=== PATIENT | male | born 1940 | race Caucasian/White ===

== ENCOUNTER 2017-08-26 06:38 | Day surgery (SDC) | payer MEDICARE ==
[2017-08-24 10:42] VITALS: BP 172/70
[2017-08-24 10:45] LABS: BASOPHILS % (AUTO) 0.4 % (0.0-5.0); EOSINOPHILS % (AUTO) 4.7 % (0.0-8.0); HEMATOCRIT 35.9 % (42-54); LYMPHOCYTES % (AUTO) 13.4 % (21.0-51.0); MEAN CORPUSCULAR HEMOGLOBIN 31.4 pg (27.0-33.0); MEAN CORPUSCULAR HGB CONC 33.7 g/dL (32.0-36.0); MEAN CORPUSCULAR VOLUME 93.2 fL (79-99); MONOCYTES % (AUTO) 6.4 % (3.0-13.0); NEUTROPHILS % (AUTO) 75.1 % (40.0-77.0); NUCLEATED RED BLOOD CELLS 0.1 % (0.0-0.19); PLATELET COUNT (AUTO) 92 K/uL (130-400); RED BLOOD CELL COUNT(AUTO) 3.85 MIL/uL (4.50-6.20); RED CELL DISTRIBUTION WIDTH 14.9 % (11.0-15.5); WHITE BLOOD COUNT (AUTO) 5.1 K/uL (4.8-10.8)
[2017-08-24 11:00] LABS: CREATININE 4.4 mg/dL (0.5-1.5); POTASSIUM 5.3 mmol/L (3.5-5.1)
[2017-08-24 11:06] LABS: INR 1.02 (0.85-1.15); PARTIAL THROMBOPLASTIN TIME 31.6 SEC (26.3-35.5); PROTHROMBIN TIME 10.7 SEC (9.6-11.6)
[2017-08-26] VITALS (8 sets, daily range): BP systolic 144–207; BP diastolic 67–114
[~2017-08-26] VITALS: Ht 174 cm; Wt 82.1 kg
[~2017-08-26 06:38] MED LIST: APIX2.5T PO; CARV3.1262 PO; LOSA100T29 PO; NPH,100V SQ; PRAV40TA PO; TAMS0.4C32 PO
[2017-08-26] MEDS ORDERED: LIDOCAINE HCL 1% MDV 50ML VIAL ONE (09:51)
[2017-08-26] MEDS ORDERED: ISOVUE-300 100 ML VIAL IV ONE (09:52)
== END 2017-08-26 11:50 | disposition home or self-care (01) ==
LOC: DAH 06:38
PROVIDERS: ATTEND Internal Medicine Nephrology
DX: T82.590A Other mechanical complication of surgically created arteriovenous fistula, initial encounter (principal); E11.22 Type 2 diabetes mellitus with diabetic chronic kidney disease; I12.0 Hypertensive chronic kidney disease with stage 5 chronic kidney disease or end stage renal disease; N18.6 End stage renal disease; I25.10 Atherosclerotic heart disease of native coronary artery without angina pectoris; Z79.899 Other long term (current) drug therapy; Z79.01 Long term (current) use of anticoagulants; Y83.2 Surgical operation with anastomosis, bypass or graft as the cause of abnormal reaction of the patient, or of later complication, without mention of misadventure at the time of the procedure
CPT/HCPCS: 36415 ×2; 36901; 80048; 82948 ×2; 84132; 85025; 85610; 85730; C1769; C1894 ×2; J1644; J3490; Q9967

== ENCOUNTER 2017-11-04 09:42 | Inpatient (IN) | payer MEDICARE ==
[~2017-11-04] VITALS: Ht 177.8 cm; Wt 78.9 kg
[2017-11-04] MEDS ORDERED: ONDANSETRON HCL MDV 20ML 2 MG/ML VIAL ONE (11:38)
[2017-11-04 11:39] LABS: BASOPHILS % (AUTO) 0.1 % (0.0-5.0); EOSINOPHILS % (AUTO) 0.8 % (0.0-8.0); HEMATOCRIT 34.3 % (42-54); LYMPHOCYTES % (AUTO) 7.5 % (21.0-51.0); MEAN CORPUSCULAR HEMOGLOBIN 32.1 pg (27.0-33.0); MEAN CORPUSCULAR HGB CONC 34.2 g/dL (32.0-36.0); MEAN CORPUSCULAR VOLUME 93.8 fL (79-99); MONOCYTES % (AUTO) 8.6 % (3.0-13.0); PLATELET COUNT (AUTO) 124 K/uL (130-400); RED BLOOD CELL COUNT(AUTO) 3.66 MIL/uL (4.50-6.20); RED CELL DISTRIBUTION WIDTH 16.3 % (11.0-15.5); WHITE BLOOD COUNT (AUTO) 9.9 K/uL (4.8-10.8)
[2017-11-04] MEDS ORDERED: MORPHINE SULFATE 4 MG/1ML SYG ONE (11:39)
[2017-11-04 11:48] LABS: POTASSIUM 4.4 mmol/L (3.5-5.1)
[2017-11-04 11:51] LABS: ALBUMIN 3.1 g/dL (3.5-5.0); BILIRUBIN,TOTAL 0.5 mg/dL (0.2-1.0); INR 1.04 (0.85-1.15); PARTIAL THROMBOPLASTIN TIME 33.4 SEC (26.3-35.5); PROTHROMBIN TIME 10.9 SEC (9.6-11.6); TOTAL PROTEIN, SERUM 6.6 g/dL (6.0-8.3)
[2017-11-04 12:18] LABS: CREATINE KINASE MB 1.6 ng/mL (0.5-3.6)
[2017-11-04] MEDS ORDERED: HYDRALAZINE HCL 10 MG TABLET PO SCH (13:48)
[2017-11-04] MEDS ORDERED: METOPROLOL TARTRATE 1 MG/ML 5ML VIAL IV ONE ×2 (15:37→16:33)
[2017-11-04] MEDS ORDERED: SODIUM CHLORIDE 0.9% 100 ML IV ONE (16:29)
[2017-11-04] MEDS ORDERED: MEROPENEM 1 GM VIAL ONE (16:29)
[2017-11-04 17:40] VITALS: BP 170/100
[2017-11-04 17:40] LABS: SPECIMENTYPE,BODY FLUID SYNOVIAL
[2017-11-04 17:41] LABS: APPEARANCE BODY FLUID CLOUDY (CLEAR); COLOR,BODY FLUID RED (LT YELLOW)
[2017-11-04 17:48] LABS: BF LYMPHOCYTE 1 %
[2017-11-04] MEDS ORDERED: CARV12.511 PO (17:54)
[2017-11-04 17:58] LABS: BODY FLUID RBC 7500 /cu. mm.; BODY FLUID WBC 5200 /cu. mm.
[2017-11-04] MEDS ORDERED: VANCOMYCIN PROTOCOL PER PHARMACY IV SCH (18:15)
[2017-11-04] MEDS: MEROPENEM 500 MG VIAL IVP SCH (18:37)
[2017-11-04] MEDS ORDERED: COMPOUND IV REFRIGERATED 1 EACH IVSOLN MISC PRN (19:45)
[2017-11-04 20:00] VITALS: BP 166/88
[2017-11-04] MEDS ORDERED: VANCOMYCIN 1.5 GM in SODIUM CHLORIDE 0.9% 250 ML IV ONE (20:00)
[2017-11-04] MEDS ORDERED: LOSARTAN 100 MG TABLET ONE (23:27)
[2017-11-04] MEDS: LOSARTAN 100 MG TABLET PO SCH (23:32)
[2017-11-04] MEDS: TAMSULOSIN HCL 0.4 MG CAP.ER.24H PO SCH (23:32)
[2017-11-04] MEDS: CARVEDILOL 12.5 MG TABLET PO SCH (23:33)
[2017-11-04] MEDS: INSULIN NPH 100 UNIT/ML 3ML SQ SCH (23:37)
[2017-11-05] VITALS (7 sets, daily range): BP systolic 120–196; BP diastolic 59–108
[2017-11-05 05:16] LABS: MEAN CORPUSCULAR HEMOGLOBIN 33.1 pg (27.0-33.0); MEAN CORPUSCULAR HGB CONC 35.7 g/dL (32.0-36.0); MEAN CORPUSCULAR VOLUME 92.8 fL (79-99); PLATELET COUNT (AUTO) 122 K/uL (130-400); RED BLOOD CELL COUNT(AUTO) 3.35 MIL/uL (4.50-6.20); WHITE BLOOD COUNT (AUTO) 7.7 K/uL (4.8-10.8)
[2017-11-05 05:29] LABS: CREATININE 5.5 mg/dL (0.5-1.5); PHOSPHORUS 5.2 mg/dL (2.5-4.9); POTASSIUM 4.4 mmol/L (3.5-5.1)
[2017-11-05 06:04] LABS: BAND NEUTROPHILS % (MANUAL) 4 % (0-2); BASOPHILS % (MANUAL) 1 % (0-2); EOSINOPHILS % (MANUAL) 3 % (1-6); LYMPHOCYTES % (MANUAL) 10 % (22-44); MAN.DIFF COMMENT-IMPRESSION MANUAL DIFFERENTIAL; MONOCYTES % (MANUAL) 2 % (2-9); PLATELET MORPHOLOGY COMMENT SLIGHTLY DECREASED; REACTIVE LYMPHOCYTES 1 % (0-0); SEGMENTED NEUTROPHILS % 79 % (40-70)
[2017-11-05] MEDS ORDERED: TAMSULOSIN HCL 0.4 MG CAP.ER.24H PO SCH (09:00)
[2017-11-05] MEDS ORDERED: CARVEDILOL 12.5 MG TABLET PO SCH (09:00)
[2017-11-05] MEDS: CARVEDILOL 12.5 MG TABLET PO SCH ×2 (09:00→20:52)
[2017-11-05] MEDS: TAMSULOSIN HCL 0.4 MG CAP.ER.24H PO SCH ×2 (09:12→20:51)
[2017-11-05] MEDS ORDERED: KETOROLAC TROMETHAMINE 10 MG TABLET PO PRN (09:15)
[2017-11-05] MEDS: INSULIN NPH 100 UNIT/ML 3ML SQ SCH ×2 (09:16→20:58)
[2017-11-05] MEDS ORDERED: 0.9% SODIUM CHLORIDE 250 ML IV BAG IV PRN (10:30)
[2017-11-05] MEDS ORDERED: SODIUM CHLORIDE 0.9% 1000ML 1,000 ML IV PRN (10:30)
[2017-11-05] MEDS ORDERED: ALBUMIN (HUMAN) 25% 100 ML IV PRN (10:30)
[2017-11-05] MEDS ORDERED: HEPARIN SODIUM 5000UNIT/ML 1ML VIAL IJ PRN (10:30)
[2017-11-05] MEDS: ATORVASTATIN CALCIUM 10 MG TABLET PO SCH (20:51)
[2017-11-05] MEDS: LOSARTAN 100 MG TABLET PO SCH (20:51)
[2017-11-05] MEDS ORDERED: INSULIN NPH 100 UNIT/ML 3ML SQ SCH (21:00)
[2017-11-06] VITALS (7 sets, daily range): BP systolic 132–194; BP diastolic 63–81
[2017-11-06] MEDS: CARVEDILOL 12.5 MG TABLET PO SCH ×2 (09:29→20:17)
[2017-11-06] MEDS: TAMSULOSIN HCL 0.4 MG CAP.ER.24H PO SCH ×2 (09:30→20:16)
[2017-11-06] MEDS: INSULIN NPH 100 UNIT/ML 3ML SQ SCH ×2 (10:39→20:41)
[2017-11-06] MEDS ORDERED: VANCOMYCIN 750MG + NS 250 ML IV SCH ×2 (17:00)
[2017-11-06] MEDS: MEROPENEM 500 MG VIAL IVP SCH (17:07)
[2017-11-06] MEDS: ATORVASTATIN CALCIUM 10 MG TABLET PO SCH (20:16)
[2017-11-06] MEDS: LOSARTAN 100 MG TABLET PO SCH (20:17)
[2017-11-06] MEDS ORDERED: NPH,100V SQ ×2 (20:29)
[2017-11-07 00:05] VITALS: BP 169/79
[2017-11-07 04:00] VITALS: BP 164/78
[2017-11-07 05:21] LABS: HEMATOCRIT 29.3 % (42-54); MEAN CORPUSCULAR HEMOGLOBIN 33.5 pg (27.0-33.0); MEAN CORPUSCULAR HGB CONC 36.2 g/dL (32.0-36.0); MEAN CORPUSCULAR VOLUME 92.6 fL (79-99); PLATELET COUNT (AUTO) 115 K/uL (130-400); RED BLOOD CELL COUNT(AUTO) 3.16 MIL/uL (4.50-6.20); RED CELL DISTRIBUTION WIDTH 15.8 % (11.0-15.5); WHITE BLOOD COUNT (AUTO) 6.5 K/uL (4.8-10.8)
[2017-11-07 05:30] LABS: BAND NEUTROPHILS % (MANUAL) 1 % (0-2); EOSINOPHILS % (MANUAL) 1 % (1-6); LYMPHOCYTES % (MANUAL) 12 % (22-44); MAN.DIFF COMMENT-IMPRESSION MANUAL DIFFERENTIAL; MONOCYTES % (MANUAL) 2 % (2-9); PLATELET MORPHOLOGY COMMENT SLIGHTLY DECREASED; SEGMENTED NEUTROPHILS % 84 % (40-70)
[2017-11-07 05:32] LABS: CREATININE 5.6 mg/dL (0.5-1.5); PHOSPHORUS 5.5 mg/dL (2.5-4.9)
[2017-11-07 08:05] VITALS: BP 195/80
[2017-11-07 08:12] VITALS: BP 195/80
[2017-11-07] MEDS: TAMSULOSIN HCL 0.4 MG CAP.ER.24H PO SCH (08:12)
[2017-11-07] MEDS: CARVEDILOL 12.5 MG TABLET PO SCH (08:12)
[2017-11-07] MEDS: INSULIN NPH 100 UNIT/ML 3ML SQ SCH (08:20)
[2017-11-07] MEDS ORDERED: DOXY100C2 PO (09:55)
== END 2017-11-07 11:15 | disposition home or self-care (01) | DRG 548 ==
LOC: EDH 09:42 → EDHIP 16:30 → OBSVTOIN 16:30 → 4CH 17:46
PROVIDERS: ADMIT Internal Medicine Nephrology; ATTEND Internal Medicine Nephrology
PROC: 5A1D70Z Performance of Urinary Filtration, Intermittent, Less than 6 Hours Per Day (ICD-10-PCS; principal; 2017-11-04)
PROC: 0R9N3ZZ Drainage of Right Wrist Joint, Percutaneous Approach (ICD-10-PCS; 2017-11-04)
DX: M00.9 Pyogenic arthritis, unspecified (principal); N18.6 End stage renal disease; E11.22 Type 2 diabetes mellitus with diabetic chronic kidney disease; I12.0 Hypertensive chronic kidney disease with stage 5 chronic kidney disease or end stage renal disease; I25.10 Atherosclerotic heart disease of native coronary artery without angina pectoris; Z95.1 Presence of aortocoronary bypass graft; Z99.2 Dependence on renal dialysis; Z28.21 Immunization not carried out because of patient refusal
CPT/HCPCS: 10022; 36415; 71045; 73130; 76942; 80048; 80053; 82550; 82553; 82948; 83880; 84100; 84484; 85025; 85610; 85730; 87071; 87077; 87186; 87205; 89051; 89060; 90935; 93005; 93931; 93971; A4218; J1644; J1815; J2185; J2270; J3370; J3490; J7030

== ENCOUNTER 2018-07-28 10:06 | Day surgery (SDC) | payer MEDICARE ==
[2018-07-26 08:34] VITALS: BP 104/57
[~2018-07-28] VITALS: Ht 175.3 cm; Wt 84.1 kg
[2018-07-28] VITALS (7 sets, daily range): BP systolic 136–168; BP diastolic 65–85
[~2018-07-28 10:06] MED LIST changes: +CARV12.511 PO; -CARV3.1262 PO; +DOXY100C2 PO; +LOSA100T20 PO; -LOSA100T29 PO
[2018-07-28 10:27] LABS: CREATININE 4.9 mg/dL (0.5-1.5); POTASSIUM 4.6 mmol/L (3.5-5.1)
[2018-07-28 10:39] LABS: INR 1.06 (0.85-1.15); PARTIAL THROMBOPLASTIN TIME 30.4 SEC (26.3-35.5); PROTHROMBIN TIME 11.1 SEC (9.6-11.6)
[2018-07-28] MEDS ORDERED: HEPARIN SODIUM 1000UNIT/ML 10ML VIAL ONE (11:35)
[2018-07-28] MEDS ORDERED: LIDOCAINE HCL 2% 20ML ONE (11:35)
[2018-07-28] MEDS ORDERED: SODIUM BICARB 50MEQ 50ML VIAL ONE (11:35)
[2018-07-28] MEDS ORDERED: SODIUM CHLORIDE 0.9% 1000ML 1,000 ML IV ONE (11:58)
[2018-07-28] MEDS ORDERED: MIDAZOLAM HCL 1 MG/ML 2ML VIAL ONE (12:23)
[2018-07-28] MEDS ORDERED: FENTANYL CITRATE PF 50 MCG/1 ML 2ML VIAL ONE (12:23)
[2018-07-28] MEDS ORDERED: IODIXANOL 320 MG/ML 100 ML VIAL ONE (12:32)
== END 2018-07-28 15:10 | disposition home or self-care (01) ==
LOC: DAH 10:06
PROVIDERS: ATTEND Student in an Organized Health Care Education/Training Program
DX: T82.898A Other specified complication of vascular prosthetic devices, implants and grafts, initial encounter (principal); Y83.2 Surgical operation with anastomosis, bypass or graft as the cause of abnormal reaction of the patient, or of later complication, without mention of misadventure at the time of the procedure; Y92.89 Other specified places as the place of occurrence of the external cause; I12.0 Hypertensive chronic kidney disease with stage 5 chronic kidney disease or end stage renal disease; E11.22 Type 2 diabetes mellitus with diabetic chronic kidney disease; N18.6 End stage renal disease; I25.10 Atherosclerotic heart disease of native coronary artery without angina pectoris; F41.9 Anxiety disorder, unspecified; Z95.5 Presence of coronary angioplasty implant and graft; Z98.890 Other specified postprocedural states; Z79.899 Other long term (current) drug therapy; Z79.01 Long term (current) use of anticoagulants; Z79.4 Long term (current) use of insulin; Z99.2 Dependence on renal dialysis; Z83.3 Family history of diabetes mellitus; Z82.5 Family history of asthma and other chronic lower respiratory diseases
CPT/HCPCS: 36415; 36901; 80048; 82948 ×2; 85610; 85730; A4606; C1894 ×2; J1644; J2250; J3010; J3490 ×2; J7030; Q9967

== ENCOUNTER 2019-01-23 10:06 | Inpatient (IN) | payer MEDICARE | END 2019-01-27 18:00 | LOC: DAHIP 10:06 → 4AH 14:38 | PROC: 0SRC0J9 Replacement of Right Knee Joint with Synthetic Substitute, Cemented, Open Approach (ICD-10-PCS; principal; 2019-01-23 12:14) | DX: M17.11 Unilateral primary osteoarthritis, right knee (principal); N18.6 End stage renal disease; I12.0 Hypertensive chronic kidney disease with stage 5 chronic kidney disease or end stage renal disease; Z99.2 Dependence on renal dialysis; E11.22 Type 2 diabetes mellitus with diabetic chronic kidney disease; D64.9 Anemia, unspecified ==

== ENCOUNTER → 2019-03-13 | Outpatient (CLI) | payer OTHER ==
[~2019-03-13] MED LIST changes: -CARV12.511 PO; +CARV25TA PO; +CARV6.2579 PO; -DOXY100C2 PO; +FERR324T PO; +HYDR-4457 PO; -LOSA100T20 PO; +LOSA100T58 PO; +MINO2.5T3 PO; +Midodrine Hcl PO
[2019-03-13 11:18] LABS: BASOPHILS % (AUTO) 0.5 % (0.0-5.0); EOSINOPHILS % (AUTO) 3.4 % (0.0-8.0); HEMATOCRIT 29.3 % (42-54); LYMPHOCYTES % (AUTO) 7.1 % (21.0-51.0); MEAN CORPUSCULAR HEMOGLOBIN 32.7 pg (27.0-33.0); MONOCYTES % (AUTO) 7.9 % (3.0-13.0); NEUTROPHILS % (AUTO) 81.1 % (40.0-77.0); PLATELET COUNT (AUTO) 90 K/uL (130-400); RED BLOOD CELL COUNT(AUTO) 2.95 MIL/uL (4.50-6.20); RED CELL DISTRIBUTION WIDTH 20.5 % (11.0-15.5); WHITE BLOOD COUNT (AUTO) 5.1 K/uL (4.8-10.8)
[2019-03-13 11:41] LABS: ALBUMIN 2.5 g/dL (3.5-5.0); BILIRUBIN,TOTAL 0.6 mg/dL (0.2-1.0); CREATININE 4.7 mg/dL (0.5-1.5); POTASSIUM 4.2 mmol/L (3.5-5.1)
[2019-03-13 12:17] LABS: PLATELET MORPHOLOGY COMMENT DECREASED
--- NOTE | 2019-03-13 12:30 | NUR ---
U/S GD RT THORACENTESIS PROCEDURE PERFORMED BY DR Krsital TALBOT. PUNCTURE SITE RT POSTERIOR BACK AND PATIENT TOLERATED PROCEDURE WELL. TOTAL REMOVED 1.5 LITERS OF GROSS BLOOD TINGED. END OF PROCEDURE AT 1200. CATHETER REMOVED AND DRESSING APPLIED. NO BLEEDING NOTED. POST CHEST X-RAY TAKEN AND READ BY DR Kristal TALBOT. NO PNEUMOTHORAX SEEN. REPORT GIVEN TO ANDERSON RYAN AND PATIENT TRANSPORTED TO [facility] AT 1230. AAO X3 WITH NO C/O PAIN. SPECIMEN SENT TO LAB.
[2019-03-13 16:02] LABS: APPEARANCE BODY FLUID CLOUDY (CLEAR); BODY FLUID WBC 188 /cu. mm.; COLOR,BODY FLUID RED (LT YELLOW); SPECIMENTYPE,BODY FLUID THORACENTESIS; TOTAL VOLUME,BODY FLUID 1500 mL
[2019-03-13 16:03] LABS: BODY FLUID RBC 24500 /cu. mm.
[2019-03-13 16:05] LABS: BF EOSINOPHIL 3 %; BF LYMPHOCYTE 74 %; BF MESOTHELIAL 10 %; BF MONOCYTE 7 %
== END ==
LOC: RAH 10:13
PROVIDERS: ATTEND Internal Medicine
DX: J90 Pleural effusion, not elsewhere classified (principal)
CPT/HCPCS: 32555; 36415; 71045; 80053; 83615; 84157; 85025; 87071; 87205; 88108; 88305; 89051

== ENCOUNTER 2019-03-30 18:07 | Inpatient (IN) | payer MEDICARE, OTHER | END 2019-04-07 16:33 | disposition home or self-care (01) | LOC: EDH 18:07 → 2CH 03-31 00:25 → 2AH 03-31 17:39 → EDHIP 22:04 → 2DH 03-31 17:44 | DX: J18.9 Pneumonia, unspecified organism (principal); N18.6 End stage renal disease; J96.01 Acute respiratory failure with hypoxia; E44.0 Moderate protein-calorie malnutrition; J90 Pleural effusion, not elsewhere classified; J81.1 Chronic pulmonary edema; I12.0 Hypertensive chronic kidney disease with stage 5 chronic kidney disease or end stage renal disease; I95.89 Other hypotension; E11.22 Type 2 diabetes mellitus with diabetic chronic kidney disease; E87.70 Fluid overload, unspecified; Z99.2 Dependence on renal dialysis ==